=== PATIENT | male | born 1935 | race Caucasian/White ===

== ENCOUNTER 2016-09-10 20:05 | Emergency (ER) | payer MEDICARE, OTHER ==
[~2016-09-10] VITALS: Ht 175.3 cm; Wt 107.0 kg
[~2016-09-10 20:05] MED LIST: ARICEPT10 MG OR; BABY ASPIRIN81 MG OR; DILAUDID 2MG2 MG/TA1 PO; DIVALPROEX SOD250 MG PO; ESCITALOPRAM OX10 MG PO; IMDUR30 MG OR; K-DUR/KLOR-CON10 ME1 OR; KEFLEX250 MG PO; LASIX40 MG OR; LIPITOR20 MG OR; LISINOPRIL20 MG PO; MEMANTINE HCL10 MG PO; MULTIVITAM10 OR; QUETIAPINE FUMA50 MG PO; TENORMIN25 MG OR; VITAMIN C1000 MG OR
[2016-09-10] MEDS ORDERED: NAMENDA5 MG PO (20:26)
[2016-09-10] MEDS ORDERED: ISOSORB MONO10 MG PO (20:28)
[2016-09-10] MEDS ORDERED: DEPAKOTE125 MG PO (20:30)
[2016-09-10] MEDS ORDERED: K-DUR/KLOR-CON20 MEQ PO (20:31)
[2016-09-10] MEDS ORDERED: ARICEPT10 MG PO (20:33)
[2016-09-10 20:47] LABS: HEMATOCRIT 43.4 % (39.0-50.0); HEMOGLOBIN 14.5 g/dl (14.0-18.0); IMMATURE GRANULOCYTES 0.5 % (0.0-1.0); MEAN CELL VOLUME 96.7 fL CALC (80.0-100.0); MEAN CORPUSCULAR HGB 32.3 pG CALC (26.0-32.0); MEAN CORPUSCULAR HGB CONC 33.4 g/L CALC (32.0-36.0); NEUT# 5.64 thou/uL (1.82-7.42); RED BLOOD COUNT 4.49 mill/uL (4.70-6.10); RED CELL DISTRI WIDTH 12.5 % (11.5-15.5)
[2016-09-10 20:59] LABS: URINE BILIRUBIN - DIPSTICK NEGATIVE (NEGATIVE); URINE BLOOD DIPSTICK NEGATIVE (NEGATIVE); URINE CLARITY CLEAR; URINE COLOR YELLOW; URINE GLUCOSE - DIPSTICK NEGATIVE (NEGATIVE); URINE KETONE TRACE mg/dL (NEGATIVE); URINE LEUK ESTERASE NEGATIVE (NEGATIVE); URINE NITRITE - DIPSTICK NEGATIVE (Negative); URINE PROTEIN - DIPSTICK NEGATIVE (NEG-TRACE); URINE UROBILINOGEN - DIPSTICK 0.2 E.U./dL (0.2)
[2016-09-10 21:10] LABS: ALBUMIN 3.8 g/dL (3.2-5.0); BILIRUBIN, TOTAL 0.3 mg/dL (0.0-1.4); CALCIUM 8.7 mg/dL (8.4-10.2); CREATININE 1.7 mg/dL (0.7-1.3); TOTAL PROTEIN 6.6 g/dL (6.3-8.2)
[2016-09-10] MEDS ORDERED: PERCOCET 5/325M1 TAB PO (22:38)
[2016-09-10 22:55] VITALS: BP 146/88
== END 2016-09-10 22:55 | disposition home or self-care (01) ==
LOC: ED 20:05
PROVIDERS: Emergency Medicine
DX: G89.29 Other chronic pain (principal); M54.5 Low back pain; M47.817 Spondylosis without myelopathy or radiculopathy, lumbosacral region

== ENCOUNTER 2018-09-01 14:50 | Emergency (ER) | payer MEDICARE, OTHER ==
[~2018-09-01] VITALS: Ht 175.3 cm; Wt 110.0 kg
[~2018-09-01 14:50] MED LIST changes: +ARICEPT10 MG PO; +DEPAKOTE125 MG PO; +ISOSORB MONO10 MG PO; +K-DUR/KLOR-CON20 MEQ PO; +NAMENDA5 MG PO; +PERCOCET 5/325M1 TAB PO
[2018-09-01 15:16] LABS: HEMATOCRIT 40.5 % (39.0-50.0); HEMOGLOBIN 13.6 g/dl (14.0-18.0); IMMATURE GRANULOCYTES 0.5 % (0.0-5.0); MEAN CELL VOLUME 94.8 fL CALC (80.0-100.0); MEAN CORPUSCULAR HGB 31.9 pG CALC (26.0-32.0); MEAN CORPUSCULAR HGB CONC 33.6 g/L CALC (32.0-36.0); NEUT# 5.23 thou/uL (1.82-7.42); RED BLOOD COUNT 4.27 mill/uL (4.70-6.10); RED CELL DISTRI WIDTH 12.6 % (11.5-15.5)
[2018-09-01 15:44] LABS: ANION GAP 13 (6-22 (CALC)); BUN 14 mg/dL (8-23); BUN/CREATININE RATIO 15 (12-20 (CALC)); CARBON DIOXIDE 24 mmol/l (22-30); CHLORIDE 101 mmol/l (95-108); CREATININE 0.9 mg/dL (0.7-1.3); GFR > 60 ML/MIN (>=60 (CALC)); GFR FOR AFR.AMER. > 60 ML/MIN (>=60 (CALC)); POTASSIUM 4.2 mmol/l (3.5-5.1); SODIUM 133 mmol/l (137-146)
[2018-09-01 15:55] VITALS: BP 159/71
== END 2018-09-01 15:55 | disposition home or self-care (01) ==
LOC: ED 14:50
PROVIDERS: Family Medicine
DX: R42 Dizziness and giddiness (principal); S41.112A Laceration without foreign body of left upper arm, initial encounter; W18.30XA Fall on same level, unspecified, initial encounter; Y92.129 Unspecified place in nursing home as the place of occurrence of the external cause

== ENCOUNTER 2019-01-26 13:12 | Observation (INO) | payer MEDICARE, OTHER ==
[~2019-01-26] VITALS: Ht 175.3 cm; Wt 102.0 kg
[~2019-01-26 13:12] MED LIST changes: +ASPIRIN ENTERIC81 MG PO; -BABY ASPIRIN81 MG OR; -ISOSORB MONO10 MG PO; +ISOSORB MONO30 MG PO; -MULTIVITAM10 OR; +MULTIVITAMI9 PO; +QUETIAPINE FUMA25 MG PO; -QUETIAPINE FUMA50 MG PO
--- NOTE | 2019-01-26 13:14 | NUR ---
PT PLACED ON TO ER STRETCHER FROM EMS STRETCHER, PT DENIES ANY CHEST PAIN AT THIS TIME, DENIES HAVING STATED HE WAS HAVING CHEST PAIN.
[2019-01-26] MEDS ORDERED: NUEDEXTA1 CAP PO (13:47)
[2019-01-26] MEDS ORDERED: AMLODIPINE BESY10 MG PO (13:47)
[2019-01-26] MEDS ORDERED: PAIN RELIEF EX500 M1 PO (13:48)
[2019-01-26 13:49] LABS: HEMATOCRIT 41.5 % (39.0-50.0); HEMOGLOBIN 13.7 g/dl (14.0-18.0); IMMATURE GRANULOCYTES 0.4 % (0.0-5.0); MEAN CELL VOLUME 95.2 fL CALC (80.0-100.0); MEAN CORPUSCULAR HGB 31.4 pG CALC (26.0-32.0); NEUT# 5.06 thou/uL (1.82-7.42); RED BLOOD COUNT 4.36 mill/uL (4.70-6.10); RED CELL DISTRI WIDTH 12.6 % (11.5-15.5)
[2019-01-26 14:05] LABS: ANION GAP 10 (6-22 (CALC)); BUN 13 mg/dL (8-23); BUN/CREATININE RATIO 13 (12-20 (CALC)); CARBON DIOXIDE 28 mmol/l (22-30); CHLORIDE 101 mmol/l (95-108); GFR > 60 ML/MIN (>=60 (CALC)); GFR FOR AFR.AMER. > 60 ML/MIN (>=60 (CALC)); POTASSIUM 4.3 mmol/l (3.5-5.1); SODIUM 135 mmol/l (137-146)
--- NOTE | 2019-01-26 14:46 | NUR ---
PT WITH DEMENTIA, FEELS THAT HE HAS BEEN HERE FOR A LONG TIME WITHOUT ANYTHING BEING DONE. PT DID SIT UP AT BEDSIDE TO VOID, SEEN TO HAVE SOME CHEST PAIN TO LEFT STERNUM DURING THE MOVING AROUND.
--- NOTE | 2019-01-26 15:05 | NUR ---
PT VERY REPETITIVE IN HIS QUESTIONS IN DEMENTIA. PT PLACED ON MONITORS, TO FLOOR WHEN REPORT GIVEN.
--- NOTE | 2019-01-26 15:30 | NUR ---
PT ARRIVES VIA STRETCHER WITH ER STAFF IN STABLE CONDITION. PT AMBULATES WITH 2 PERSON ASSIST TO SCALE AND THEN TO THE BED. PT IS ORIENTED TO PERSON ONLY. PT CONTINUOUSLY REPEATS THE SAME QUESTIONS, VERY FORGETFUL. ASSESMENT COMPLETED AT THIS TIME. PT HAS VARIOUS BRUSING TO LEGS AND ARMS. SKIN TEAR NOTED TO RIGHT ELBOW, PHOTO OBTAINED. PT ORIENTED TO ROOM AND CALL FLORENTINO SYSTEM. WILL REORIENT NEEDED. BED ALARM IN PLACE.
[2019-01-26 15:43] VITALS: BP 163/80
--- NOTE | 2019-01-26 15:52 | NUR ---
PT TAKEN TO ROOM 270 WITHOUT INCIDENT, REPORT WAS TO JASON.
--- NOTE | 2019-01-26 16:10 | NUR ---
PT CONTINUES TO TRY AND GET OUT OF BED. REORENTATION NOT WORKING. MD AWARE AND SITTER AT BEDSIDE FOR PTS SAFETY.
--- NOTE | 2019-01-26 16:45 | NUR ---
PT SETTING OFF BED ALARM. TRYING TO GET OUT OF BED. ASSISTED WITH URINAL. BED ALARM IN PLACE. REORIENTED. WILL CONTINUE TO MONITOR.
[2019-01-26 18:57] VITALS: BP 146/74
--- NOTE | 2019-01-26 19:15 | NUR ---
REPORT FROM JASON HUIZAR. PT RESTING IN BED. ALERT TO SELF ONLY. SITTER PRESENT IN ROOM. PT DENIES ANY PAIN OR DISCOMFORT. NO APPARENT DISTRESS NOTED. CLOTH TESTER QUALITY IN PLACE. CALL LIGHT WITHIN REACH. WILL CONTINUE TO MONITOR.
--- NOTE | 2019-01-26 21:31 | NUR ---
PT SET OFF BED ALARM. UPHOLSTERER INSIDE IN TO ASSIST WITH PT TO VOID. PT VOIDED IN URINAL WITHOUT ANY DIFFICULTY. NO APPARENT DISTRESS NOTED. PT DENIES ANY PAIN OR DISCOMFORT. PT REPOSITIONED BACK IN BED AT THIS TIME. CALL LIGHT WITHIN REACH. WILL CONTINUE.
[2019-01-26 23:53] VITALS: BP 140/71
--- NOTE | 2019-01-27 01:22 | NUR ---
PT ASSISTED X2 PERSON ASSIST TO STAND AT BEDSIDE AND USE URINAL. PT VOIDED WITHOUT DIFFICULTY. NO APPARENT DISTRESS NOTED. PT DENIES ANY PAIN OR DISCOMFORT. CALL LIGHT WITHIN REACH. WILL CONTINUE TO MONITOR.
--- NOTE | 2019-01-27 04:42 | NUR ---
ASSISTED PT UP AT BEDSIDE TO USE URINAL. VOIDED WITHOUT DIFFICULTY. PT REORIENTED TO PLACE AND TIME. CALL LIGHT WITHIN REACH. WILL CONTINUE TO MONITOR.
[2019-01-27 05:40] VITALS: BP 136/71
[2019-01-27 06:44] LABS: CHOLESTEROL HDL RATIO 3.4 (<4.4 (CALC))
--- NOTE | 2019-01-27 08:01 | NUR ---
PT IS SITTING IN THE SIDE OF THE BED. ASSESSMENT DONE. TELE IN PLACE. PT IS A&O X1 AND CONFUSED. RESPS EVEN AND UNLABORED. PT DENIES NEEDS. SAFETY PRECAUTIONS REINFORCED AND CALL LIGHT IN REACH. BED ALARM IN PLACE.
[2019-01-27 08:03] VITALS: BP 159/70
[2019-01-27 10:42] VITALS: BP 148/72
--- NOTE | 2019-01-27 11:00 | NUR ---
PT SITTING IN RECLINER. PT IS ONLY A&O X1 AND CONFUSED. PT DENIES NEEDS. CALL LIGHT IN REACH.
--- NOTE | 2019-01-27 14:00 | NUR ---
IV site discontinued, cath intact. No edema , no redness, voices no discomfort.
--- NOTE | 2019-01-27 14:05 | NUR ---
DISCHARGE INSTRUCTIONS REVIEWED WITH PATIENT. PATIENT VERBALIZED UNDERSTANDING.PACKET AND INSTRUCTIONS WILL BE GIVEN TO THE [facility].
--- NOTE | 2019-01-27 14:17 | NUR ---
Discharge instructions given. Patient verbalizes understanding of same. Discharged in stable condition via Wheelchair to *Other with staff. All belongings sent with pt.
--- NOTE | 2019-01-27 14:23 | NUR ---
REPORT GIVEN TO KRISTEN FROM [facility].
== END 2019-01-27 14:18 ==
LOC: ED 13:12 → ED-I 14:14 → ED 14:46 → MS2 14:47
PROVIDERS: Family Medicine; ADMIT Internal Medicine; ATTEND Internal Medicine
DX: R07.89 Other chest pain (principal); I10 Essential (primary) hypertension; I25.10 Atherosclerotic heart disease of native coronary artery without angina pectoris; G30.9 Alzheimer's disease, unspecified; F02.81 Dementia in other diseases classified elsewhere, unspecified severity, with behavioral disturbance

== ENCOUNTER 2019-09-21 07:37 | Emergency (ER) | payer MEDICARE, OTHER ==
[~2019-09-21 07:37] MED LIST changes: +AMLODIPINE BESY10 MG PO; +NUEDEXTA1 CAP PO; +PAIN RELIEF EX500 M1 PO
[2019-09-21 07:53] LABS: HEMATOCRIT 43.7 % (39.0-50.0); HEMOGLOBIN 14.3 g/dl (14.0-18.0); IMMATURE GRANULOCYTES 0.2 % (0.0-5.0); MEAN CORPUSCULAR HGB 31.1 pG CALC (26.0-32.0); MEAN CORPUSCULAR HGB CONC 32.7 g/dL CAL (32.0-36.0); NEUT# 3.68 thou/uL (1.82-7.42); RED BLOOD COUNT 4.6 mill/uL (4.70-6.10); RED CELL DISTRI WIDTH 12.7 % (11.5-15.5)
[2019-09-21 08:10] LABS: ALBUMIN 3.8 g/dL (3.2-5.0); ALKALINE PHOSPHATASE 65 u/l (38-126); ANION GAP 10 (6-22 (CALC)); BUN 13 mg/dL (8-23); BUN/CREATININE RATIO 14 (12-20 (CALC)); CARBON DIOXIDE 26 mmol/l (22-30); CHLORIDE 105 mmol/l (95-108); CREATININE 0.9 mg/dL (0.7-1.3); GFR > 60 ML/MIN (>=60 (CALC)); GFR FOR AFR.AMER. > 60 ML/MIN (>=60 (CALC)); SGOT/AST 19 u/l (19-48); SODIUM 137 mmol/l (137-146)
[2019-09-21 08:20] LABS: BILIRUBIN, TOTAL 0.5 mg/dL (0.0-1.4)
[2019-09-21 08:22] LABS: MYOGLOBIN 106 ng/mL (0 - 121)
[2019-09-21 10:07] LABS: URINE BILIRUBIN - DIPSTICK NEGATIVE (NEGATIVE); URINE BLOOD DIPSTICK NEGATIVE (NEGATIVE); URINE COLOR YELLOW; URINE GLUCOSE - DIPSTICK NEGATIVE (NEGATIVE); URINE KETONE NEGATIVE (NEGATIVE); URINE LEUK ESTERASE NEGATIVE (NEGATIVE); URINE NITRITE - DIPSTICK NEGATIVE (Negative); URINE PH 7.5 (4.5-8.0); URINE PROTEIN - DIPSTICK NEGATIVE (NEG-TRACE); URINE SPECIFIC GRAVITY 1.015; URINE UROBILINOGEN - DIPSTICK 0.2 E.U./dL (0.2)
[2019-09-21 11:30] VITALS: BP 165/70
== END 2019-09-21 11:30 | disposition home or self-care (01) ==
LOC: ED 07:37
PROVIDERS: Emergency Medicine
PROC: 0HQ1XZZ Repair Face Skin, External Approach (ICD-10-PCS; principal; 2019-09-21)
PROC: 0HQGXZZ Repair Left Hand Skin, External Approach (ICD-10-PCS; 2019-09-21)
DX: S01.112A Laceration without foreign body of left eyelid and periocular area, initial encounter (principal); S61.412A Laceration without foreign body of left hand, initial encounter; I10 Essential (primary) hypertension; I25.10 Atherosclerotic heart disease of native coronary artery without angina pectoris; G30.9 Alzheimer's disease, unspecified; F02.80 Dementia in other diseases classified elsewhere, unspecified severity, without behavioral disturbance, psychotic disturbance, mood disturbance, and anxiety; W18.30XA Fall on same level, unspecified, initial encounter; Y92.129 Unspecified place in nursing home as the place of occurrence of the external cause; Z11.59 Encounter for screening for other viral diseases

== ENCOUNTER 2019-12-01 09:48 | Emergency (ER) | payer MEDICARE, OTHER ==
[~2019-12-01] VITALS: Ht 175.3 cm; Wt 104.5 kg
[2019-12-01 10:46] LABS: HEMATOCRIT 41.8 % (39.0-50.0); HEMOGLOBIN 13.1 g/dl (14.0-18.0); IMMATURE GRANULOCYTES 0.4 % (0.0-5.0); MEAN CELL VOLUME 97.2 fL CALC (80.0-100.0); MEAN CORPUSCULAR HGB 30.5 pG CALC (26.0-32.0); MEAN CORPUSCULAR HGB CONC 31.3 g/dL CAL (32.0-36.0); NEUT# 3.33 thou/uL (1.82-7.42); RED BLOOD COUNT 4.3 mill/uL (4.70-6.10); RED CELL DISTRI WIDTH 13.1 % (11.5-15.5)
[2019-12-01 11:09] LABS: ALBUMIN 3.6 g/dL (3.2-5.0); ALKALINE PHOSPHATASE 58 u/l (38-126); ANION GAP 7 (6-22 (CALC)); BILIRUBIN, TOTAL 0.4 mg/dL (0.0-1.4); BUN 15 mg/dL (8-23); BUN/CREATININE RATIO 15 (12-20 (CALC)); CARBON DIOXIDE 28 mmol/l (22-30); CHLORIDE 105 mmol/l (95-108); CREATININE 0.9 mg/dL (0.7-1.3); GFR > 60 ML/MIN (>=60 (CALC)); GFR FOR AFR.AMER. > 60 ML/MIN (>=60 (CALC)); POTASSIUM 3.9 mmol/l (3.5-5.1); SGOT/AST 22 u/l (19-48); SODIUM 135 mmol/l (137-146); TOTAL PROTEIN 6.6 g/dL (6.3-8.2)
[2019-12-01] MEDS ORDERED: NUEDEXTA1 CAP PO (11:23)
[2019-12-01 12:57] VITALS: BP 131/86
== END 2019-12-01 13:37 ==
LOC: ED 09:48
PROVIDERS: Family Medicine
DX: S09.90XA Unspecified injury of head, initial encounter (principal); I10 Essential (primary) hypertension; I25.10 Atherosclerotic heart disease of native coronary artery without angina pectoris; G30.9 Alzheimer's disease, unspecified; F02.80 Dementia in other diseases classified elsewhere, unspecified severity, without behavioral disturbance, psychotic disturbance, mood disturbance, and anxiety; W18.30XA Fall on same level, unspecified, initial encounter; Y92.129 Unspecified place in nursing home as the place of occurrence of the external cause; Z11.59 Encounter for screening for other viral diseases

== ENCOUNTER 2020-04-10 22:56 | Emergency (ER) | payer MEDICARE, OTHER ==
[~2020-04-10] VITALS: Ht 175.3 cm; Wt 100.0 kg
[2020-04-11 02:00] VITALS: BP 138/70
== END 2020-04-11 02:00 ==
LOC: ED 22:56
DX: S40.212A Abrasion of left shoulder, initial encounter (principal); S51.012A Laceration without foreign body of left elbow, initial encounter; S60.417A Abrasion of left little finger, initial encounter; I10 Essential (primary) hypertension; G30.9 Alzheimer's disease, unspecified; F02.80 Dementia in other diseases classified elsewhere, unspecified severity, without behavioral disturbance, psychotic disturbance, mood disturbance, and anxiety; I25.10 Atherosclerotic heart disease of native coronary artery without angina pectoris; W01.0XXA Fall on same level from slipping, tripping and stumbling without subsequent striking against object, initial encounter; Y92.099 Unspecified place in other non-institutional residence as the place of occurrence of the external cause

== ENCOUNTER 2020-10-05 09:56 | Observation (INO) | payer MEDICARE, OTHER ==
[~2020-10-05] VITALS: Ht 175.3 cm; Wt 90.7 kg
--- NOTE | 2020-10-05 09:56 | NUR ---
PT TO ROOM VIA EMS STRETCHER FOR TRIAGE.
[2020-10-05 10:43] LABS: HEMATOCRIT 41.8 % (39.0-50.0); HEMOGLOBIN 13.6 g/dl (14.0-18.0); IMMATURE GRANULOCYTES 0.3 % (0.0-5.0); MEAN CORPUSCULAR HGB 31.6 pG CALC (26.0-32.0); MEAN CORPUSCULAR HGB CONC 32.5 g/dL CAL (32.0-36.0); NEUT# 4.3 thou/uL (1.82-7.42); RED BLOOD COUNT 4.31 mill/uL (4.70-6.10); RED CELL DISTRI WIDTH 12.7 % (11.5-15.5)
--- NOTE | 2020-10-05 11:00 | NUR ---
ALERT NOT ORIENTED
[2020-10-05 11:06] LABS: ACT PARTIAL THROMBO TIME 27.1 SECONDS (20.0-32.5); ALBUMIN 3.7 g/dL (3.2-5.0); ALKALINE PHOSPHATASE 60 u/l (38-126); ANION GAP 11 (6-22 (CALC)); BILIRUBIN, TOTAL 0.3 mg/dL (0.0-1.4); BUN 12 mg/dL (8-23); BUN/CREATININE RATIO 14 (12-20 (CALC)); CARBON DIOXIDE 25 mmol/l (22-30); CHLORIDE 103 mmol/l (95-108); CREATININE 0.9 mg/dL (0.7-1.3); GFR > 60 ML/MIN (>=60 (CALC)); GFR FOR AFR.AMER. > 60 ML/MIN (>=60 (CALC)); POTASSIUM 4.1 mmol/l (3.5-5.1); PROTHROMBIN TIME 10.1 SECONDS (9.0-12.5); SGOT/AST 25 u/l (19-48); SODIUM 135 mmol/l (137-146); TOTAL PROTEIN 7.2 g/dL (6.3-8.2)
--- NOTE | 2020-10-05 12:00 | NUR ---
ALERT NOT ORIENTED ATTEMPTED TO GET OUT OF BED REDIRECTED AT THIS TIME.
--- NOTE | 2020-10-05 12:57 | NUR ---
ALERT FOLLOWS SOME COMMANDS ABLE TO WALK TO THE TOP OF THE BED WITH ASSISTANCE, INSTRUCTED TO STAY IN THE BEDD
--- NOTE | 2020-10-05 14:20 | NUR ---
REPORT RECEIVED FROM DENISE IN ED, PT ARRIVED ON UNIT @ 1436 TRANSPORTED VIA W/C BY ED STAFF, ALERT AND ORIENED TO SELF ONLY, CONFUSED, LACERATION WITH SUTURES TO LEFT FACE, EDEMATOUS, BRUISED LEFT ORBITAL AREA WITH BLEEDING ABRASIONS. FACE CLEANED AND SMALL BANDAID APPLIED TO BLEEDING AREA, LEFT ARM BANDAGED, ED NURSE REPORED PT HAS LACERATION TO ARM, SITTER AT BEDSIDE.
[2020-10-05] MEDS ORDERED: ISORDIL10 MG PO (14:23)
[2020-10-05] MEDS ORDERED: POTASSIUM CHLORI10 % PO (14:24)
--- NOTE | 2020-10-05 14:30 | NUR ---
GAVE REPORT TO DEEPA PT TAKEN TO MED SURG IN WC STABLE AND IN NO DISTRESS. CARE ASSUMED TO DEEPA
[2020-10-05] MEDS ORDERED: CICLOPIROX0.771 TOP (15:56)
[2020-10-05 19:00] VITALS: BP 153/70
--- NOTE | 2020-10-05 20:12 | NUR ---
PT ASSESSMENTS COMPLETED, PLEASE SEE DOCUMENTATION. SMALL LACERATION TO LEFT PERIORBITAL, CLEANSED WITH NS, PAT DRY, APPLIED 2X2 GUAZE, SECURED WITH TRANSPARENT FILM. WILL MONITOR FOR S/S OF INFECTION. WOUND CARE CONSULTED. WILL MONITOR.
[2020-10-06] VITALS: BP 148/84
--- NOTE | 2020-10-06 00:36 | NUR ---
PT RESTING COMFORTABLY WITH EYES CLOSED. NO COMPLAINTS VOICED. NO S/S OF DISTRESS NOTED. SITTER REMAINS AT THE BEDSIDE FOR SAFETY. SAFETY PRECAUTIONS IN PLACE, BED IN LOWEST POSITION, CALL LIGHT WITHIN REACH
[2020-10-06 04:00] VITALS: BP 144/85
--- NOTE | 2020-10-06 04:16 | NUR ---
PT RESTING QUIETLY IN BED WITH EYES CLOSED. LACERATION TO L PERIORBATAL CONTINUES TO WEEP/DRAIN BLOODY DRAINAGE. PT HAS SATURATED 3 DRESSINGS SO FAR TONIGHT. STERI STRIPS APPLIED AND COVERED WITH A BAND AID, WILL MONITOR
[2020-10-06 05:25] LABS: HEMATOCRIT 41.9 % (39.0-50.0); MEAN CELL VOLUME 95.2 fL CALC (80.0-100.0); MEAN CORPUSCULAR HGB 31.8 pG CALC (26.0-32.0); MEAN CORPUSCULAR HGB CONC 33.4 g/dL CAL (32.0-36.0); RED BLOOD COUNT 4.4 mill/uL (4.70-6.10); RED CELL DISTRI WIDTH 12.6 % (11.5-15.5)
[2020-10-06 05:53] LABS: ANION GAP 11 (6-22 (CALC)); BUN 11 mg/dL (8-23); BUN/CREATININE RATIO 14 (12-20 (CALC)); CARBON DIOXIDE 24 mmol/l (22-30); CHLORIDE 104 mmol/l (95-108); CREATININE 0.8 mg/dL (0.7-1.3); GFR > 60 ML/MIN (>=60 (CALC)); GFR FOR AFR.AMER. > 60 ML/MIN (>=60 (CALC)); SODIUM 135 mmol/l (137-146)
[2020-10-06 07:07] VITALS: BP 149/82
--- NOTE | 2020-10-06 08:01 | NUR ---
SHIFT CHANGE REPORT, PT AWAKE AND ALERT, ORIENTED TO PERSON ONLY, CONFUSED, LYING IN SUPINE POSITION, FOLLOWS COMMANDS, EDEMA AND BRUISING TO LEFT FACE SIGNIFICANT, GARY ARMS WITH DRESSINGS INTACT, BED ALARM ACTIVATED, SITTER AT BEDSIDE, CALL FLORENTINO IN REACH AND BED LOCKED IN LOWEST POSITION.
--- NOTE | 2020-10-06 09:06 | NUR ---
PT C/O OF LEFT CHEST PAIN AT THIS TIME, VITAL SIGNS MEASURED, BP = 143/78, 82, 99% RA.
[2020-10-06 12:00] VITALS: BP 134/68
--- NOTE | 2020-10-06 15:16 | NUR ---
Discharge instructions given. Patient verbalizes understanding of same. Discharged in fair condition via Wheelchair to [facility] with *Other. All belongings sent with pt.
[2020-10-07] MEDS ORDERED: DIVALPROEX SOD250 M1 PO (03:24)
[2020-10-07] MEDS ORDERED: DEPAKOTE125 MG PO (03:27)
[2020-10-07] MEDS ORDERED: ISOSORB MONO30 MG PO (03:29)
[2020-10-07] MEDS ORDERED: NUEDEXTA1 CAP PO (03:30)
[2020-10-07] MEDS ORDERED: MULTI VIT PO (03:30)
[2020-10-07] MEDS ORDERED: KLOR-CON M2020 MEQ PO (03:31)
[2020-10-07] MEDS ORDERED: QUETIAPINE FUMA25 MG PO (03:32)
[2020-10-07] MEDS ORDERED: VITAMIN C1000 MG PO (03:33)
== END 2020-10-06 15:13 | disposition home health service (06) ==
LOC: ED 09:56 → ED-I 13:05 → ED 13:43 → MS2 13:44
PROVIDERS: Nurse Practitioner; ADMIT Internal Medicine; ATTEND Internal Medicine
PROC: 0HQ1XZZ Repair Face Skin, External Approach (ICD-10-PCS; principal; 2020-10-05)
PROC: 3E0234Z Introduction of Serum, Toxoid and Vaccine into Muscle, Percutaneous Approach (ICD-10-PCS; 2020-10-06)
DX: S01.112A Laceration without foreign body of left eyelid and periocular area, initial encounter (principal); S61.512A Laceration without foreign body of left wrist, initial encounter; R07.9 Chest pain, unspecified; I10 Essential (primary) hypertension; I25.10 Atherosclerotic heart disease of native coronary artery without angina pectoris; G30.9 Alzheimer's disease, unspecified; F02.80 Dementia in other diseases classified elsewhere, unspecified severity, without behavioral disturbance, psychotic disturbance, mood disturbance, and anxiety; W01.0XXA Fall on same level from slipping, tripping and stumbling without subsequent striking against object, initial encounter; Y92.099 Unspecified place in other non-institutional residence as the place of occurrence of the external cause; Z23 Encounter for immunization; Z20.822 Contact with and (suspected) exposure to COVID-19
CPT/HCPCS: G0378; Q9967

== ENCOUNTER 2020-10-07 03:05 | Emergency (ER) | payer MEDICARE, OTHER ==
[~2020-10-07] VITALS: Ht 175.3 cm; Wt 100.0 kg
[~2020-10-07 03:05] MED LIST changes: +CICLOPIROX0.771 TOP; +ISORDIL10 MG PO; +POTASSIUM CHLORI10 % PO
[2020-10-07] MEDS ORDERED: DIVALPROEX SOD250 M1 PO (03:24)
[2020-10-07] MEDS ORDERED: DEPAKOTE125 MG PO (03:27)
[2020-10-07] MEDS ORDERED: ISOSORB MONO30 MG PO (03:29)
[2020-10-07] MEDS ORDERED: NUEDEXTA1 CAP PO (03:30)
[2020-10-07] MEDS ORDERED: MULTI VIT PO (03:30)
[2020-10-07] MEDS ORDERED: KLOR-CON M2020 MEQ PO (03:31)
[2020-10-07] MEDS ORDERED: QUETIAPINE FUMA25 MG PO (03:32)
[2020-10-07] MEDS ORDERED: VITAMIN C1000 MG PO (03:33)
[2020-10-07 03:39] LABS: HEMOGLOBIN 14.4 g/dl (14.0-18.0); IMMATURE GRANULOCYTES 0.6 % (0.0-5.0); MEAN CORPUSCULAR HGB 32.1 pG CALC (26.0-32.0); MEAN CORPUSCULAR HGB CONC 33.5 g/dL CAL (32.0-36.0); NEUT# 7.56 thou/uL (1.82-7.42); RED BLOOD COUNT 4.48 mill/uL (4.70-6.10); RED CELL DISTRI WIDTH 12.7 % (11.5-15.5)
[2020-10-07 03:55] LABS: ALBUMIN 3.6 g/dL (3.2-5.0); ALKALINE PHOSPHATASE 63 u/l (38-126); ANION GAP 11 (6-22 (CALC)); BILIRUBIN, TOTAL 0.4 mg/dL (0.0-1.4); BUN 18 mg/dL (8-23); BUN/CREATININE RATIO 19 (12-20 (CALC)); CARBON DIOXIDE 21 mmol/l (22-30); CHLORIDE 106 mmol/l (95-108); CREATININE 0.9 mg/dL (0.7-1.3); GFR > 60 ML/MIN (>=60 (CALC)); GFR FOR AFR.AMER. > 60 ML/MIN (>=60 (CALC)); POTASSIUM 4.1 mmol/l (3.5-5.1); SGOT/AST 27 u/l (19-48); SODIUM 133 mmol/l (137-146); TOTAL PROTEIN 6.8 g/dL (6.3-8.2)
[2020-10-07 05:36] VITALS: BP 142/68
== END 2020-10-07 05:56 | disposition short-term general hospital (02) ==
LOC: ED 03:05
PROVIDERS: Family Medicine
DX: S06.5X9A Traumatic subdural hemorrhage with loss of consciousness of unspecified duration, initial encounter (principal); I10 Essential (primary) hypertension; G30.9 Alzheimer's disease, unspecified; F02.80 Dementia in other diseases classified elsewhere, unspecified severity, without behavioral disturbance, psychotic disturbance, mood disturbance, and anxiety; I25.10 Atherosclerotic heart disease of native coronary artery without angina pectoris; S01.112D Laceration without foreign body of left eyelid and periocular area, subsequent encounter; W19.XXXA Unspecified fall, initial encounter; Y92.009 Unspecified place in unspecified non-institutional (private) residence as the place of occurrence of the external cause; W19.XXXD Unspecified fall, subsequent encounter; S60.212D Contusion of left wrist, subsequent encounter; Z91.81 History of falling

== ENCOUNTER 2020-11-08 06:35 | Emergency (ER) | payer MEDICARE, OTHER ==
[~2020-11-08] VITALS: Ht 175.3 cm; Wt 100.0 kg
[~2020-11-08 06:35] MED LIST changes: +DIVALPROEX SOD250 M1 PO; +KLOR-CON M2020 MEQ PO; +MULTI VIT PO; +VITAMIN C1000 MG PO
[2020-11-08 09:15] VITALS: BP 147/73
== END 2020-11-08 09:26 | disposition short-term general hospital (02) ==
LOC: ED 06:35
DX: S06.5X0A Traumatic subdural hemorrhage without loss of consciousness, initial encounter (principal); S00.01XA Abrasion of scalp, initial encounter; I10 Essential (primary) hypertension; G30.9 Alzheimer's disease, unspecified; F02.80 Dementia in other diseases classified elsewhere, unspecified severity, without behavioral disturbance, psychotic disturbance, mood disturbance, and anxiety; I25.10 Atherosclerotic heart disease of native coronary artery without angina pectoris; W18.30XA Fall on same level, unspecified, initial encounter; Y92.099 Unspecified place in other non-institutional residence as the place of occurrence of the external cause; Z20.822 Contact with and (suspected) exposure to COVID-19

== ENCOUNTER 2020-12-10 15:39 | Observation (INO) | payer MEDICARE, OTHER ==
[~2020-12-10] VITALS: Ht 175.3 cm; Wt 86.0 kg
--- NOTE | 2020-12-10 15:40 | NUR ---
PT TO ROOM VIA EMS
[2020-12-10 16:49] LABS: HEMATOCRIT 39.3 % (39.0-50.0); HEMOGLOBIN 12.5 g/dl (14.0-18.0); IMMATURE GRANULOCYTES 0.1 % (0.0-5.0); MEAN CELL VOLUME 98.3 fL CALC (80.0-100.0); MEAN CORPUSCULAR HGB 31.3 pG CALC (26.0-32.0); MEAN CORPUSCULAR HGB CONC 31.8 g/dL CAL (32.0-36.0); NEUT# 12.07 thou/uL (1.82-7.42); RED CELL DISTRI WIDTH 12.9 % (11.5-15.5)
[2020-12-10 17:04] LABS: URINE BILIRUBIN - DIPSTICK NEGATIVE (NEGATIVE); URINE BLOOD DIPSTICK NEGATIVE (NEGATIVE); URINE COLOR YELLOW; URINE GLUCOSE - DIPSTICK NEGATIVE (NEGATIVE); URINE KETONE NEGATIVE (NEGATIVE); URINE LEUK ESTERASE NEGATIVE (NEGATIVE); URINE PH 5.5 (4.5-8.0); URINE PROTEIN - DIPSTICK TRACE mg/dL (NEG-TRACE); URINE SPECIFIC GRAVITY 1.025; URINE UROBILINOGEN - DIPSTICK 0.2 E.U./dL (0.2)
[2020-12-10 17:06] LABS: URINE NITRITE - DIPSTICK NEGATIVE (Negative)
[2020-12-10 17:07] LABS: ALBUMIN 3.8 g/dL (3.2-5.0); ALKALINE PHOSPHATASE 75 u/l (38-126); ANION GAP 14 (6-22 (CALC)); BUN 22 mg/dL (8-23); BUN/CREATININE RATIO 24 (12-20 (CALC)); CARBON DIOXIDE 22 mmol/l (22-30); CHLORIDE 104 mmol/l (95-108); CREATININE 0.9 mg/dL (0.7-1.3); GFR > 60 ML/MIN (>=60 (CALC)); GFR FOR AFR.AMER. > 60 ML/MIN (>=60 (CALC)); SGOT/AST 20 u/l (19-48); SODIUM 136 mmol/l (137-146); TOTAL PROTEIN 7.6 g/dL (6.3-8.2)
[2020-12-10 17:09] LABS: BILIRUBIN, TOTAL 0.2 mg/dL (0.0-1.4)
--- NOTE | 2020-12-10 18:00 | NUR ---
PT UP AT BEDSIDE W/GOWN REMOVED AND IV TO RAC PULLED OUT. DRSG TO RAC. PT ASSISTED BEDSIDE CARE. HYGIENE CARE PROVIDED. PT MONITORED BY STAFF.
--- NOTE | 2020-12-10 19:30 | NUR ---
PT MOVED TO RM 11 FOR BETTER VISUALIZATION.
--- NOTE | 2020-12-10 20:35 | NUR ---
PT FED LIGHT MEAL. TOLERATES WITHOUT DIFFICULTY SWALLOWING OR COUGHING. COMFORT MEASURES PROVIDED. PT RESTING ON BED WITH EYES CLOSED.
--- NOTE | 2020-12-10 22:48 | NUR ---
PT SLEEPING REPOSITIONED BY STAFF. HEELS FLOATED. VSS. IV SITE HEALTHY.
[2020-12-11 06:57] LABS: HEMATOCRIT 35.9 % (39.0-50.0); HEMOGLOBIN 11.6 g/dl (14.0-18.0); MEAN CELL VOLUME 98.6 fL CALC (80.0-100.0); MEAN CORPUSCULAR HGB 31.9 pG CALC (26.0-32.0); MEAN CORPUSCULAR HGB CONC 32.3 g/dL CAL (32.0-36.0); RED BLOOD COUNT 3.64 mill/uL (4.70-6.10)
--- NOTE | 2020-12-11 07:00 | NUR ---
PT SLEPT ALL NIGHT. HAD TO WAKE UP TO TAKE MEDICINE. VSS.
[2020-12-11 07:13] VITALS: BP 145/68
--- NOTE | 2020-12-11 07:14 | NUR ---
recieved for care, patient resting quietly. No distress at this time.
[2020-12-11 07:17] LABS: ANION GAP 9 (6-22 (CALC)); BUN 17 mg/dL (8-23); BUN/CREATININE RATIO 20 (12-20 (CALC)); CALCULATED LDLCHOLESTEROL 73 mg/dL (62-129 (CALC)); CARBON DIOXIDE 24 mmol/l (22-30); CHLORIDE 105 mmol/l (95-108); CHOLESTEROL HDL RATIO 3.3 (<4.4 (CALC)); CREATININE 0.8 mg/dL (0.7-1.3); GFR > 60 ML/MIN (>=60 (CALC)); GFR FOR AFR.AMER. > 60 ML/MIN (>=60 (CALC)); HDL CHOLESTEROL 39 mg/dL (>=40); MAGNESIUM 1.9 mg/dL (1.6-2.3); POTASSIUM 3.9 mmol/l (3.5-5.1); SODIUM 134 mmol/l (137-146); TOTAL CHOLESTEROL 127 mg/dl (0-199); TOTAL TRIGLYCERIDES 73 mg/dl (30-149); VLDL CHOLESTROL 15 mg/dl (0-38 (CALC))
--- NOTE | 2020-12-11 08:53 | NUR ---
breakfast tray to patient with assistance. ate 1/2 of breakfast, tolerated well.
--- NOTE | 2020-12-11 10:00 | NUR ---
ASSUMED CARE OF PATIENT.
--- NOTE | 2020-12-11 10:00 | NUR ---
BED CHANGED AND PERICARE GIVEN FOR LARGE VOID AND SMALL STOOL
--- NOTE | 2020-12-11 11:00 | NUR ---
PATIENT RESTING, NO DISTRESS
--- NOTE | 2020-12-11 12:14 | NUR ---
PATIENT INCONTINENT OFF URINE, GLORIA CARE PROVIDED, PATIENT IS COMFUSED AND HAS DIFFICULTY FOLLOWING COMMANDS, ASSIST OF 2 IS NEEDED.
--- NOTE | 2020-12-11 13:00 | NUR ---
PATIENT FED LUNCH BY THIS NURSE. PATIENT ATE 50%.
--- NOTE | 2020-12-11 14:00 | NUR ---
GLORIA CARE PROVIDED, SMALL FORMED BROWN BM NOTED.
--- NOTE | 2020-12-11 15:37 | NUR ---
DR BULLOCK CALLED AT THIS TIME FOR ORDERS FOR PRN TYLENOL AND FLUIDS. PATIENT HAS 101.4 RECTAL TEMP
--- NOTE | 2020-12-11 15:50 | NUR ---
PATIENT MEDICATED PER EMAR. MEDS GIVEN IN APPLE SAUCE AND CHOCOLATE PUDDING.
--- NOTE | 2020-12-11 16:05 | NUR ---
PRN TYLENOL GIVEN AT THIS TIME.
--- NOTE | 2020-12-11 17:16 | NUR ---
REPORT CALLED TO SHIRA HEREDIA
[2020-12-11 17:36] VITALS: BP 132/74
--- NOTE | 2020-12-11 18:06 | NUR ---
PT ARRIVED TO [facility] ROOM 270 VIA BED ACCOMPAINED BY ER NURSE. PT IS ALERT BUT SPEECH IS INAPPROPRIATE. ASSESSMENT AND VITALS COMPLETED. BP 132/74, HR 111, O2 94% ON ROOM AIR. RESPIRATIONS ARE EVEN AND UNLABORED WITH NO DISTRESS NOTED ON ROOM AIR. LUNG SOUNDS CLEAR. HEART RHYTHM NORMAL WITH TELE IN PLACE.8611 SA PER ER MONITORING. PULSES STRONG. SCATTERED BRUSING AND SCABBING NOTED ON ARM AND LEGS. BUTTOCKS REDDNED. SKIN INTACT. PT DENIES OF ANY PAINS. #20G LAC INFUSING WITH IVF PER ORDER, SITE REMAINS HEALTHY AND PATENT. PT REPOSITION IN BED FOR DINNER. TRAY ACCOMIDATED FOR DINNER. PT FEEDING SELF. PT DENIES OF ANY ADDITIONAL NEEDS AT THIS TIME. ALL SAFETY PRECAUTIONS ARE IN PLACE WITH CALL LIGHT IN REACH. BED ALARM ACTIVE. WILL CONTINUE TO MONITOR.
[2020-12-11 19:00] VITALS: BP 109/64
--- NOTE | 2020-12-11 20:00 | NUR ---
PATIENT RESTING IN BED AT THIS TIME-CONFUSED, HX OF DEMENTIA. PATIENT IS ONLY ABLE TO IDENTIFY HIMSELF WITH LAST NAME OF NAILA. PATIENT IS RESTLESS AND INCONT OF LARGE AMT OF URINE AND SMALL AMT OF STOOL. PATIENT PROVIDED WITH PARTIAL BATH AND COMPLETE LINEN CHANGE WAS DONE. TELE MONITOR REAPPLIED AFTER PATIENT HAD REMOVED THE ELECTRODES. IVF NS PATENT AND INFUSING VIA LAC SITE AT 100CC/HR. BED ALARM IN PLACE FOR PATIENT SAFETY. CALL LIGHT IN REACH. WILL CONT TO MONITOR.
--- NOTE | 2020-12-11 23:05 | NUR ---
PATIENT CONT TO BE RESTLESS-TELE MONITOR IS OFF. BREIF IS OFF AND PATIENT IS INCONT OF BOTH BOWEL AND BLADDER. PATIENT WAS GIVEN PARTIAL BATH WITH SOAP AND WATER. LINENS AND BLUE PADS WERE REPLACED. BREIF WAS REAPPLACED. PATIENT REMAINS COMPLETELY CONFUSED. TELE MONITOR REAPPLIED. IVF NS PATENT AND INFUSING VIA LAC SITE AT 100CC/HR. BED ALARM IN PLACE FOR PATIENT SAFETY. CALL LIGHT IN REACH. WILL CONT TO MONITOR.
[2020-12-12] VITALS: BP 122/62
--- NOTE | 2020-12-12 00:30 | NUR ---
PATIENT CONTINIOUSLY BENDING HIS LEFT ARM AND IF PUMP ALARMING CONSTANTLY EVEN THOUGHT THE LAC SITE IS GOOD WITH GOOD BLOOD RETURN. SITE FLUSH WITH NS. NEW IV SITE STARTED TO RIGHT UPPER ARM-#22 WITH GOOD BLOOD RETURN. IVF NS PATENT AND INFUSING AT 100CC/HR. CURRENTLY ZOSEYN INFUSING ORDERED. PATIENT REMAINS CONFUSED. SODERAILS UP FOR PT SAFETY. BED ALARM IN PLACE FOR PATIENT SAFETY. WILL CONT TO MONITOR.
[2020-12-12 04:00] VITALS: BP 140/73
--- NOTE | 2020-12-12 04:15 | NUR ---
PATIENT IS RESTING QUIETLY AT THIS TIME WITH EYES CLOSED. RESPS ARE EVEN AND UNLABORED. TELE MONITOR IN PLACE AT THIS TIME. IVF PATENT AND INFUSING VIA RIGHT UPPER ARM IV SITE AT 100CC/HR. SITE REMAINS HEALTHY. SALINE LOCK TO LAC REMAINS INTACT AND HEALTHY AT THIS TIME. BED ALARM IN PLACE FOR PATIENT SAFETY. CALL LIGHT IN REACH. WILL CONT TO MONITOR.
--- NOTE | 2020-12-12 04:54 | NUR ---
PATIENT RESTING IN BED-INCONT OF LARGE AMT OF URINE. PROVIDED WITH PERICARE WITH SOAP AND WATER. TURNED AND REPOSITIONED. REMAINS CONFUSED. IVF NS PATENT AND INFUSING VIA RIGHT UPPER ARM AT 100CC/HR. TELE MONITOR IN PLACE-LAST READING WAS [id number] WITH BBB. CALL LIGHT IN REACH. WILL CONT TO MONITOR.
[2020-12-12 05:49] LABS: HEMATOCRIT 35.3 % (39.0-50.0); HEMOGLOBIN 11.5 g/dl (14.0-18.0); MEAN CELL VOLUME 98.1 fL CALC (80.0-100.0); MEAN CORPUSCULAR HGB 31.9 pG CALC (26.0-32.0); MEAN CORPUSCULAR HGB CONC 32.6 g/dL CAL (32.0-36.0); RED BLOOD COUNT 3.6 mill/uL (4.70-6.10); RED CELL DISTRI WIDTH 12.9 % (11.5-15.5)
[2020-12-12 05:57] LABS: ANION GAP 11 (6-22 (CALC)); BUN 16 mg/dL (8-23); BUN/CREATININE RATIO 16 (12-20 (CALC)); CARBON DIOXIDE 22 mmol/l (22-30); CHLORIDE 107 mmol/l (95-108); GFR > 60 ML/MIN (>=60 (CALC)); GFR FOR AFR.AMER. > 60 ML/MIN (>=60 (CALC)); POTASSIUM 3.8 mmol/l (3.5-5.1); SODIUM 135 mmol/l (137-146)
--- NOTE | 2020-12-12 07:00 | NUR ---
RECIEVED REPORT FROM SHIRA SOTO
[2020-12-12 08:40] VITALS: BP 146/67
--- NOTE | 2020-12-12 08:40 | NUR ---
PT RESTING IN SEMI FOWLERS POSITION. PT IS A/O X1 AND INAPPROPRIATE. ASSESSMENT AND VITALS COMPLETED. RESPIRATIONS ARE EVEN AND UNLABORED WITH NO DISTRESS NOTED. LUNG SOUNDS ARE CLEAR. HEART RHYTHM NORMAL WITH TELE IN PLACE, SR WITH BBB. BOWEL SOUNDS ARE ACTIVE. #20G LAC FLUSHED AND #22G LIDYA INFUSING WITH IVF PER ORDER, SITE REMAINS HEALTHY AND PATENT. SCATTERED SCABS NOTED. REDDNED BUTTOCKS NOTED. PULSES STRONG. PT DENIES OF ANY PAINS OR DISCOMFORTS. ALL SAFETY PRECAUTIONS ARE IN PLACE WITH CALL LIGHT IN REACH. WILL CONTINUE TO MONITOR.
[2020-12-12 10:05] VITALS: BP 151/76
--- NOTE | 2020-12-12 11:58 | NUR ---
PT POSITION IN BED FOR LUNCH. PT CONTINUE TO GET OUT OF BED. PT ORIENTED TO PLACE AND TIME. LUNCH TRAY ACCOMIDATED FOR PT. TELE MONITORING REMAINS IN PLACE. IVF INFUSING PER ORDER, SITE REMAINS HEALTHY AND PATENT. PT DENIES OF ANY PAINS OR DISCOMFORTS. ALL SAFETY PRECAUTIONS ARE IN PLACE. WILL CONTINUE TO MONITOR.
--- NOTE | 2020-12-12 12:19 | NUR ---
REJI,ANRP AT BEDSIDE
--- NOTE | 2020-12-12 12:19 | NUR ---
DR BULLOCK AND REJI,ANNICHOLAS AT BEDSIDE
--- NOTE | 2020-12-12 12:36 | NUR ---
UPDATE TO SON PROVIDED. PASSCODE PROVIDED
--- NOTE | 2020-12-12 12:49 | NUR ---
PT MEDICATED WITH ZYPREXA AT THIS TIME DUE TO INCREASE AGITATION AND NEED FOR CT. PT TOLERATED WELL. ALL SAFETY PRECAUTIONS REMAINS IN PLACE. WILL CONTINUE TO MONITOR
--- NOTE | 2020-12-12 13:30 | NUR ---
PT TRANSPORTED TO CT VIA BED IN STABLE CONDITON ACCOMPAINED BY MARTINA DIEGO
--- NOTE | 2020-12-12 13:48 | NUR ---
PT ARRIVED BACK TO [facility] ROOM 270 VIA BED ACCOMPAINED BY RADIOLOGY STAFF AND MARTINA ROBLES. PT RECONNECTED TO IV, INFUSING PER ORDER, SITE REMAIN HEALTHY AND PATENT. TELE MONITORING IN PLACE. ALL SAFETY PRECAUTIONS ARE IN PLACE WITH CALL LIGHT IN REACH. BED ALARM ACTIVE. WILL CONTINUE TO MONTIOR
[2020-12-12 15:00] VITALS: BP 125/63
--- NOTE | 2020-12-12 15:41 | NUR ---
PT RESTING IN SEMI FOWLERS POSITION. RESPIRATIONS ARE EVEN AND UNLABORED WITH NO DISTRESS NOTED. #20G LAC REMAINS IN PLACE. #22G RAC INFUSING WITH IVF PER ORDER, SITE REMAINS HEALTHY AND PATENT. ARM BOARD IN PLACE. TELE MONITORING IN PLACE. PT DENIES OF ANY PAINS OR DISCOMFORTS AT THIS TIME. ALL SAFETY PRECAUTIONS ARE IN PLACE. BED ALARM ACTIVE. WILL CONTINUE TO MONITOR.
--- NOTE | 2020-12-12 16:24 | NUR ---
PT CONTINUES TO PULL AT TELE, IV TUBING AND CRAWLING OUT OF BED. DR BULLOCK INFORMED. ORDER FOR X1 DOSE OF ATIVAN AND CONTINUE ZYPREXA. ORDER FAXED TO PHARMACY. ALL SAFTEY PRECAUTIONS ARE IN PLACE WITH CALL LIGHT IN REACH. BED ALARM ACTIVE.
--- NOTE | 2020-12-12 17:14 | NUR ---
PT REMAINS RESTING IN SEMI FOWLERS POSITION. PT APPEARS MUCH MORE CALM AT THIS TIME. ATIVAN ON HOLD. IVF INFUSING PER ORDER, SITE REMAINS HEALTHY AND PATENT. PT DENIES OF ANY NEEDS. ALL SAFETY PRECAUTIONS ARE IN PLACE WITH CALL LIGHT IN REACH. WILL CONTINUE TO MONITOR
[2020-12-12 19:26] VITALS: BP 150/82
--- NOTE | 2020-12-12 19:57 | NUR ---
1930: Patient awake and atempting to get out of bed. Pt oriented x 0. Tried to reorient to place and time. Assessment complete. Call light within reach.
--- NOTE | 2020-12-12 22:47 | NUR ---
Patient resting in bed, eyes closed, tele in place, IVF per pump.
[2020-12-13 00:37] VITALS: BP 145/79
--- NOTE | 2020-12-13 01:21 | NUR ---
Patient resting bed, eyes closed, resp even on room air. Call light within reach.
--- NOTE | 2020-12-13 05:15 | NUR ---
REPORT REC FROM Oh WILLOUGHBY RN
[2020-12-13 05:53] VITALS: BP 156/73
[2020-12-13 06:08] LABS: HEMATOCRIT 38.8 % (39.0-50.0); HEMOGLOBIN 12.6 g/dl (14.0-18.0); MEAN CELL VOLUME 98.2 fL CALC (80.0-100.0); MEAN CORPUSCULAR HGB 31.9 pG CALC (26.0-32.0); MEAN CORPUSCULAR HGB CONC 32.5 g/dL CAL (32.0-36.0); RED BLOOD COUNT 3.95 mill/uL (4.70-6.10); RED CELL DISTRI WIDTH 12.9 % (11.5-15.5)
--- NOTE | 2020-12-13 06:16 | NUR ---
PT IN BED, AWAKENED THIS HOGSHEAD MAT INSPECTOR ENTERED ROOM TO INITIATE ABX. A&O TO PLACE. REORIENTATION GIVEN, REINFORCEMENT NEEDED. PT BACK TO SLEEP. NO DISTRESS NOTED. CALL LIGHT WITHIN REACH, BED ALARM IN PLACE FOR SAFETY.
[2020-12-13 06:21] LABS: ANION GAP 11 (6-22 (CALC)); BUN 11 mg/dL (8-23); BUN/CREATININE RATIO 14 (12-20 (CALC)); CARBON DIOXIDE 22 mmol/l (22-30); CHLORIDE 110 mmol/l (95-108); CREATININE 0.8 mg/dL (0.7-1.3); GFR > 60 ML/MIN (>=60 (CALC)); GFR FOR AFR.AMER. > 60 ML/MIN (>=60 (CALC)); MAGNESIUM 2.1 mg/dL (1.6-2.3); POTASSIUM 3.7 mmol/l (3.5-5.1); SODIUM 139 mmol/l (137-146)
[2020-12-13 07:46] VITALS: BP 159/87
--- NOTE | 2020-12-13 07:52 | NUR ---
PT LAYING IN BED. A&O TO PLACE. PT AGREEABLE TO LET THIS COTTON BROKER OBTAIN VITAL SIGNS. CLEAR BREATH SOUNDS. ACTIVE BOWEL SOUNDS X4 QUADRANTS. #22G TO LAC WITH NS INFUSING PER MAR ORDERS, #20G LAC HEALTHY AND PATENT. REPOSITIONED PT IN BED WITH THE ASSISTANCE OF SAPNA MACK. NO PAIN QUES VISUALZIED AT THIS TIME. ASSESSMENT COMPLETED, DISCUSSED POC, REINFORECEMENT NEEDED. BED ALARM IN PLACE FOR SAFETY. CALL LIGHT WITHIN REACH.
--- NOTE | 2020-12-13 08:00 | NUR ---
PRELIMINARY CULTURE SHOWS GRAM (+) cocci in 1/4 vials no new orders
--- NOTE | 2020-12-13 09:45 | NUR ---
DR MELLO AND Samuel IRVIN APRN AT BEDSIDE
--- NOTE | 2020-12-13 10:31 | NUR ---
ATTEMPT MADE TO GIVE PT HIS PO MEDICATIONS SCHEDULED PER EMAR, PT SAT UP IN HIGH FOWLERS POSITION , MEDICATIONS GIVEN WITH YOGURT, POTASSIUM TOLERATED WELL IT WAS DISSOLVED WITH THE YOGURT, OTHER MEDICATIONS SPIT OUT. REATTEMPT MADE, PT CONTINUED TO SPIT OUT MEDICATIONS. OTHER PO MEDICATIONS NOT GIVEN AT THIS TIME. BED ALARM IN PLACE. CALL LIGHT WITHIN REACH.
[2020-12-13 10:40] VITALS: BP 132/72
--- NOTE | 2020-12-13 12:24 | NUR ---
PT SITTING ON THE SIDE OF THE BED. REORIENTATION GIVEN. PT EATING LUNCH. SAPNA MACK AT BEDSIDE, BED ALARM IN PLACE FOR SAFETY
[2020-12-13 14:31] VITALS: BP 141/85
--- NOTE | 2020-12-13 15:15 | NUR ---
PT SLEEPING IN BED NO DISTRESS NOTED. CALL LIGHT WITHIN REACH. BED ALARM IN PLACE FOR SAFETY
--- NOTE | 2020-12-13 18:19 | NUR ---
PT SITTING IN BED EATING DINNER. CALL LIGHT WITHIN REACH. BED ALARM IN REACH. CALL LIGHT IN REACH .
[2020-12-13 19:00] VITALS: BP 145/82
--- NOTE | 2020-12-13 20:00 | NUR ---
PHYSICAL ASSESMENT COMPLETE. PT CURRENTLY DENIES PAIN OR DISCOMFORT. SCHEDULED MEDICATIONS AND PRN MEDICATION ADMINISTERED, SEE E-MAR. PT DENIES ANY NEEDS AT THIS TIME. PLAN OF CARE REVIEWED, PT DENIES QUESTIONS, VERBALIZES UNDERSTANDING. ITEMS WITHIN REACH, BED LOCKED IN LOW POSITION W/ BEDRAILS UP X2. CALL FLORENTINO WITHIN REACH, AGREES TO CALL PRN.
--- NOTE | 2020-12-14 | NUR ---
PT LAYING IN BED WITH EYES CLOSED, APPEARS TO BE SLEEPING, APPEARS COMFORTABLE AND IN NO DISTRESS. RESPIRATIONS REGULAR AND UNLABORED. ITEMS REMAIN WITHIN REACH, CALL FLORENTINO REMAINS WITHIN REACH. BED REMAINS LOCKED AND IN LOW POSITION WITH BEDRAILS UP X2. WILL CONTINUE TO MONITOR.
[2020-12-14 04:00] VITALS: BP 121/77
--- NOTE | 2020-12-14 04:02 | NUR ---
PT RESTING IN BED, NO SIGNS OF DISTRESS NOTED, RESP EVEN AND UNLABORED. PT VOICES NO NEEDS OR COMPLAINTS AT THIS TIME. CALL LIGHT IN REACH, CONTINUE TO MONITOR.
[2020-12-14 05:57] LABS: HEMATOCRIT 39.3 % (39.0-50.0); HEMOGLOBIN 12.6 g/dl (14.0-18.0); MEAN CELL VOLUME 98.7 fL CALC (80.0-100.0); MEAN CORPUSCULAR HGB 31.7 pG CALC (26.0-32.0); MEAN CORPUSCULAR HGB CONC 32.1 g/dL CAL (32.0-36.0); RED BLOOD COUNT 3.98 mill/uL (4.70-6.10)
[2020-12-14 06:17] LABS: ANION GAP 9 (6-22 (CALC)); BUN 14 mg/dL (8-23); BUN/CREATININE RATIO 14 (12-20 (CALC)); CARBON DIOXIDE 25 mmol/l (22-30); CHLORIDE 109 mmol/l (95-108); GFR > 60 ML/MIN (>=60 (CALC)); GFR FOR AFR.AMER. > 60 ML/MIN (>=60 (CALC)); POTASSIUM 3.8 mmol/l (3.5-5.1); SODIUM 139 mmol/l (137-146)
[2020-12-14 07:25] VITALS: BP 139/76
--- NOTE | 2020-12-14 07:35 | NUR ---
PT IN BED UPON ENTERING ROOM. PT IS ALERT TO SELF. ASSESSMENT AND VITALS DONE. S1 AND S2 HEARD UPON ASCULTATION. LUNGS CLEAR BILATERALLY. BOWELS ACTIVE IN ALL 4 QUADRANTS. SKIN BRUISED/SCABS, WARM AND DRY. IV PATENT AND HEALTHY RAC NS AT 100. PEDAL PULSES MODERATE. NO PAIN EXPRESSED BY PT. CALL LIGHT WITHIN REACH.
--- NOTE | 2020-12-14 09:48 | NUR ---
DR. MELLO AND Chemo ERVIN. AT BEDSIDE DISCUSSING POC AT BEDSIDE.
[2020-12-14 10:20] VITALS: BP 119/67
--- NOTE | 2020-12-14 12:00 | NUR ---
PT SET OFF ALARM A FEW TIMES. GOT IN BED. CALL LIGHT WITHIN REACH.
--- NOTE | 2020-12-14 12:50 | NUR ---
final blood cx shows staph capitis, contaminant. reproted to ruth, no new orders
--- NOTE | 2020-12-14 14:10 | NUR ---
HAD TO GIVE PT ZYPREXA PT WAS SUPER AGITATED, RIPPING OUT IV TUBE, AIRCRAFT ENGINE MECHANIC OVERHAUL. PT WASNT FOLLOWING COMMANDS.
[2020-12-14 14:15] VITALS: BP 114/64
--- NOTE | 2020-12-14 14:40 | NUR ---
PT RESTING IN BED. CALL LIGHT WITHIN REACH. NO DISTRESS NOTED.
--- NOTE | 2020-12-14 16:04 | NUR ---
PT IS AGITATED AGAIN. PT IS TRYING TO GET OUT OF BED. SET OFF HIS ALARM COUNTLESS AMOUNT OF TIMES.
[2020-12-14 19:00] VITALS: BP 148/76
[2020-12-15] VITALS: BP 129/69
--- NOTE | 2020-12-15 01:12 | NUR ---
PT LAYING IN BED WITH EYES CLOSED, APPEARS TO BE SLEEPING, APPEARS COMFORTABLE AND IN NO DISTRESS. RESPIRATIONS REGULAR AND UNLABORED. BED ALARM ACTIVATED. CALL FLORENTINO REMAINS WITHIN REACH. BED REMAINS LOCKED AND IN LOW POSITION WITH BEDRAILS UP X2. WILL CONTINUE TO MONITOR.
--- NOTE | 2020-12-15 04:13 | NUR ---
PT AWAKE WATCHING TV, RESP EVEN AND UNLABORED. NURSE IS SITTING AT PTS BEDSIDE PT IS CONFUSED AND TRYING TO GET PUT OF BED.
[2020-12-15 04:17] VITALS: BP 136/78
--- NOTE | 2020-12-15 06:55 | NUR ---
REPORT RECEIVED FROM SHIRA NAARNJO
--- NOTE | 2020-12-15 09:20 | NUR ---
PT RESTING IN SEMI FOWLERS POSITION, CONFUSED AND ALERT TO SELF AT TIMES;VS OBTAINED AND ASSESSMENT COMPLETED;PT DENIES ANY CURRENT PAIN OR DISCOMFORTS,PAIN SCALE AND REPORTING EDUCATED;RESPIRATIONS EVEN AND UNLABORED ON RA,CLEAR LUNG SOUNDS;ABDOMEN SOFT ON PALPATION AND ACTIVE IN ALL 4 QUADRANTS;WEAK PEDAL PULSES;SKIN INTACT;TELE MONITORING IN PLACE;#22G TO DAGO INFUSING NS @ 100ML/HR,SITE APPEARS HEALTHY;ALL SAFETY PRECAUTIONS REMAIN IN PLACE WITH BED IN THE LOWEST POSITION AND BED ALARM ON FOR SAFETY;CALL LIGHT IN REACH;WILL CONTINUE TO MONITOR
[2020-12-15 09:23] VITALS: BP 145/71
--- NOTE | 2020-12-15 09:47 | NUR ---
AT BEDSIDE DISCUSSING POC.
[2020-12-15 10:30] VITALS: BP 114/66
--- NOTE | 2020-12-15 11:05 | NUR ---
REPEAT COVID19 NASAL SWAB COMPLETED AT THIS TIME,PT TOLERATED WELL.SWAB SENT TO LAB.
--- NOTE | 2020-12-15 11:32 | NUR ---
PT note Patient sleeping as entered room, WATER SPONGER's stated he has not slept in days.
--- NOTE | 2020-12-15 11:50 | NUR ---
PT RESTING IN SUPINE POSITION, REMAINS CONFUSED;RESPIRATIONS EVEN AND UNLABORED ON RA;PT DENIES ANY CURRENT PAIN OR NEEDS;TELE MONITORING IN PLACE;IV SITE PATENT AND ABX STARTED PER ORDER;ALL SAFETY PRECAUTIONS REMAIN IN PLACE WITH BED IN THE LOWEST POSITION AND BED ALARM ON FOR SAFETY;CALL LIGHT IN REACH;WILL CONTINUE TO MONITOR
[2020-12-15 15:22] VITALS: BP 148/78
--- NOTE | 2020-12-15 16:10 | NUR ---
PT APPEARS TO BE SLEEPING IN SEMI FOWLERS POSITION;RESPIRATIONS EVEN AND UNLABORED ON RA;NO S/S OF DISTRESS NOTED;TELE MONITORING IN PLACE;IV SITE PATENT INFUSING NS WITH EASE PER ORDER;AWAITING PORTABLE POWER TOOL REPAIRER BY [facility] FOR TRANSPORTATION TO [facility] APPROX PORTABLE POWER TOOL REPAIRER TIME 1630;ALL SAFETY PRECAUTIONS REMAIN IN PLACE WITH BED IN THE LOWEST POSITION AND BED ALARM ON FOR SAFETY;CALL LIGHT IN REACH;WILL CONTINUE TO MONITOR
--- NOTE | 2020-12-15 16:34 | NUR ---
CALL RECEIVED FROM ZABRINA AT [facility]. ZABRINA REPORTED NAHID LARA IS HAVING TRANSPORTATION ISSUES AND REQUESTS TO HAVE PT D/C TOMORROW 12/16/20.SPOKE WITH JOSE BAL AND WILL EXPLORE ADDITIONAL TRANSPORTATION OPTIONS FOR THIS EVENING.
--- NOTE | 2020-12-15 16:43 | NUR ---
CALL PLACED TO [facility], SPOKE WITH MAYKEL TO BE TRANSPORTED TO [facility] AT APPROX 1900.
--- NOTE | 2020-12-15 16:48 | NUR ---
ZABRINA AT [facility] NOTIFIED OF [facility] PICKUP TIME FOR TRANSPORTATION AND VERBALIZES UNDERSTANDING.
--- NOTE | 2020-12-15 17:35 | NUR ---
PT TRANSPORTED TO [facility] IN STABLE CONDITION VIA ACCOMPANIED BY [facility] TRANSPORTATION STAFF.ALL BELONINGS LEFT WITH STAFF MEMBER INCLUDING D/C INSTRUCTIONS.
--- NOTE | 2020-12-15 17:35 | NUR ---
Discharge instructions given. Patient verbalizes understanding of same. Discharged in stable condition via Wheel[facility] to [facility] with *Other. All belongings sent with pt.
--- NOTE | 2020-12-15 17:43 | NUR ---
REPORT CALLED TO CARLOS JAY DIXIE.
== END 2020-12-15 17:35 ==
LOC: ED 15:39 → ED-I 17:40 → ED 18:37 → ED-I 18:38 → MS2 18:38 → ED-I 12-11 12:14 → MS2 12-11 16:20
PROVIDERS: Family Medicine; Nurse Practitioner; ADMIT Hospitalist; ATTEND Hospitalist
DX: R50.9 Fever, unspecified (principal); I10 Essential (primary) hypertension; I25.10 Atherosclerotic heart disease of native coronary artery without angina pectoris; G30.9 Alzheimer's disease, unspecified; K59.00 Constipation, unspecified; F02.80 Dementia in other diseases classified elsewhere, unspecified severity, without behavioral disturbance, psychotic disturbance, mood disturbance, and anxiety; Z20.822 Contact with and (suspected) exposure to COVID-19
CPT/HCPCS: G0378; J1650; Q9967; S0166